=== PATIENT | male | born 1955 | race Caucasian/White ===

== ENCOUNTER 2019-09-19 20:23 | Emergency (ER) | payer OTHER ==
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
[2019-09-19] MEDS: BACIGUENT PACKET TP ONE (21:18)
[2019-09-19 21:35] VITALS: BP 132/74; PULSE 82; O2SAT 99
== END 2019-09-19 21:36 | disposition home or self-care (01) ==
LOC: ED 20:23
DX: T24.292A Burn of second degree of multiple sites of left lower limb, except ankle and foot, initial encounter (principal); T24.231A Burn of second degree of right lower leg, initial encounter; T24.221A Burn of second degree of right knee, initial encounter; T31.0 Burns involving less than 10% of body surface; T79.9XXA Unspecified early complication of trauma, initial encounter; X12.XXXA Contact with other hot fluids, initial encounter; S80.812A Abrasion, left lower leg, initial encounter; T65.891A Toxic effect of other specified substances, accidental (unintentional), initial encounter
CPT/HCPCS: 99283; A9270-GY